=== PATIENT | female | born 1955 | race Caucasian/White ===

== ENCOUNTER → 2019-02-16 | Outpatient (CLI) | payer BC ==
[~2019-02-16] MED LIST: IBUPROHM200 MG PO; LIPITOR 40MG TA40 MG PO; MELATONIN3 M1 PO; MVI; XANAX 0.5MG0.5 MG PO; [UNRECOGNIZED DRUG - OTHER]; fish oil
== END ==
LOC: MC.RAD 01-14 16:00
DX: Z12.31 Encounter for screening mammogram for malignant neoplasm of breast (principal)

== ENCOUNTER 2021-03-14 15:00 | Outpatient (RCR) | payer BC ==
[2021-02-23 15:14] VITALS: BP 120/78; PULSE 66; TEMP 98.9
[2021-03-05 15:08] VITALS: BP 126/82; PULSE 68; TEMP 99
[2021-03-12 15:08] VITALS: BP 125/83; PULSE 76; TEMP 98.2
[~2021-03-14] VITALS: Ht 162.6 cm; Wt 83.3 kg
[~2021-03-14 15:00] MED LIST changes: +DOXYCYCLINE 10100 MG PO; +FERROUS SU325 MG/TAB PO; +INDERAL 10MG10 MG PO; +MASON NATURAL2000 IU PO; +MOBIC 7.5MG7.5 MG PO; +OMEGA-3 1000 MG1 CAP PO; +PROBIOTIC BLEN1 EACH PO; +VITAMIN C500 MG PO; +ZESTRIL 10MG10 MG PO
[2021-03-14 15:13] VITALS: BP 136/78; PULSE 72; TEMP 98
== END 2021-03-14 16:00 | disposition home or self-care (01) ==
LOC: EUO 15:00
DX: D64.9 Anemia, unspecified (principal)
CPT/HCPCS: J1756